=== PATIENT | male | born 1995 | race Caucasian/White ===

== ENCOUNTER 2018-02-22 21:03 | Inpatient (IN) ==
--- NOTE | 2018-02-22 22:18 | Emergency Department Note ---
Disposition Clinical Impression: Acute psychosis Disposition: Still a Patient Time of Disposition: 22:18 General Adult HPI - General Chief complaint: ED Psychiatric Symptoms Stated complaint: 1A consult/ seeing bugs Time Seen by Provider: 02/22/18 21:22 Source: patient, EMS Mode of arrival: EMS Limitations: altered mental status Nursing Notes Reviewed: Yes Vital Signs Reviewed: Yes - History of Present Illness HPI Narrative: Patient presents to the ED with abnormal behavior. Patient was found swatting at bugs in the air that were not there. He told EMS he was trying to get to the mother brought of his car. Patient states to me that someone is missed with the "tiffs" in the security system of his computer motherboard's. Patient denies any drug use to me. Denies any chest pain shortness of breath numbness tingling nausea vomiting or diarrhea. Pain Scale: 0 - Related Data Previous Rx's Medication Instructions Recorded methylPREDNISolone [Medrol] 4 mg PO TAPER #21 tablet 04/20/17 Allergies Allergy/AdvReac Type Severity Reaction Status Date / Time Amoxicillin Allergy Abdominal Verified 02/22/18 21:16 Pain acetaminophen [From Tylenol] AdvReac See Verified 02/22/18 21:16 Comments Cyclobenzaprine AdvReac Gastrointestinal Verified 02/22/18 21:16 [From Flexeril] Upset ibuprofen AdvReac Unconscious Verified 02/22/18 21:16 naproxen AdvReac See Verified 02/22/18 21:16 Comments Penicillins AdvReac Gastrointestinal Verified 02/22/18 21:16 Upset All systems ED: reviewed and negative except as stated. Constitutional: Denies: fever Cardiovascular: Denies: chest pain Gastrointestinal: Denies: abdominal pain, vomiting, diarrhea Past Medical History - Past Medical History Attestation: Yes The following information was validated with the patient. Source: patient, nursing notes reviewed Medical history: Reports: no medical history Surgical history: Reports: other Psychiatric history: Reports: ADHD - Social History Smoking Status: Current every day smoker Smokeless Tobacco Status: No Alcohol use: Reports: none Drug use: Reports: methamphetamine Physical Exam Patient awake and alert sitting on the side of the bed. Patient converted in dirt. - General General appearance: alert, in no apparent distress - Head Head exam: atraumatic, normocephalic - Eye Eye exam: Present: normal appearance - Neck Neck exam: Present: normal inspection - Respiratory Respiratory exam: Present: normal lung sounds bilaterally - Cardiovascular Cardiovascular exam: Present: regular rate, normal rhythm, normal heart sounds - Abdominal Exam Abdominal exam: Present: soft, Non-Tender - Neurological Exam Neurological exam: Present: alert, oriented X3 - Psychiatric Psychiatric exam: Present: agitated - Skin Skin exam: Present: warm Course - Reevaluation(s) Reevaluation #1: Patient disheveled. Actively delusional. Medical clearance and evaluation by 1A. 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 Time: 22:18 Vital Signs Temperature 98.1 F 02/22/18 21:09 Pulse Rate 110 02/22/18 21:09 Respiratory Rate 20 02/22/18 21:09 Blood Pressure 133/87 02/22/18 21:09 O2 Sat by Pulse Oximetry 97 02/22/18 21:09 Temperature 98.1 F 02/22/18 21:09 Pulse Rate 110 02/22/18 21:09 Respiratory Rate 20 02/22/18 21:09 Blood Pressure 133/87 02/22/18 21:09 O2 Sat by Pulse Oximetry 97 02/22/18 21:09 Oxygen Delivery Oxygen Delivery Room Air Critical Care Time Critical Care Time: No
[2018-02-22 22:34] LABS: Acetaminophen < 10 mcg/mL (10-20); BUN/Creatinine Ratio 21 (6-26); Blood Urea Nitrogen 23 mg/dL (6-20); Calcium 9.8 mg/dL (8.6-10.3); Carbon Dioxide 27 mEq/L (23-29); Chloride 105 mEq/L (98-107); Ethanol < 10 mg/dL (Less than 10); Glucose 117 mg/dL (70-105); Osmolality,Calculated 293 (280-300); Potassium 3.6 mEq/L (3.5-5.1); Salicylate < 2.5 mg/dL (15.0-30.0); Sodium 139 mEq/L (136-145); eGFR For Non-African Americans > 60 (> 60)
[2018-02-22 22:51] LABS: Basophils % 0.3 %; Eosinophils % 0.3 %; Hematocrit 45.4 % (37.5-50.1); Hemoglobin 15.2 g/dL (12.9-16.9); Immature Granulocytes % 0.2 % (0-4); Lymphocytes % 22.5 %; Mean Corpuscular HGB Conc 33.5 g/dL (31.6-35.5); Mean Corpuscular Hemoglobin 29.5 pg (28.0-33.3); Mean Platelet Volume 9.5 fL (9.4-12.4); Monocytes # 0.8 K/mcL (0.0-1.3); Monocytes % 9.2 %; Platelet Count 253 K/mcL (140-400); Red Blood Count 5.16 M/mcL (4.19-5.50); Red Cell Distribution Width 13.1 % (11.5-14.5); Segmented Neutrophils % 67.5 %
[2018-02-22 23:09] LABS: Bilirubin,Urine Negative (Negative); Blood,Urine Negative (Negative); Clarity,Urine Clear (Clear); Color,Urine Yellow (Yellow); Glucose,Urine (UA) Normal (Normal); Ketones,Urine Negative (Negative); Leukocyte Esterase,Urine Negative (Negative); Nitrite,Urine Negative (Negative); Protein,Urine Negative (Neg-Trace); Specific Gravity,Urine 1.017 (1.010-1.025); Urobilinogen,Urine Normal (Normal)
[2018-02-22 23:33] LABS: Amphetamine Screen,Urine Positive ng/mL (Cutoff=1000); Barbiturate Screen,Urine Negative ng/mL (Cutoff=200); Benzodiazepines Screen,Urine Negative ng/mL (Cutoff=200); Cannabinoid Screen,Urine Negative ng/mL (Cutoff = 50); Cocaine Screen,Urine Negative ng/mL (Cutoff= 300); Opiate Screen,Urine Negative ng/mL (Cutoff=300); Phencyclidine Screen,Urine Negative ng/mL (Cutoff=25)
--- NOTE | 2018-02-23 03:25 | Emergency Department Note ---
Disposition Clinical Impression: Acute psychosis, Amphetamine abuse Disposition: Still a Patient Condition: Good Referrals: NONE,PCP [Primary Care Provider] - Forms: ED Satisfaction Letter General Adult HPI - General Chief complaint: ED Psychiatric Symptoms Stated complaint: 1A consult/ seeing bugs Time Seen by Provider: 02/22/18 21:22 Source: patient, EMS Mode of arrival: EMS Limitations: altered mental status - History of Present Illness Pain Scale: 0 - Related Data Previous Rx's Medication Instructions Recorded methylPREDNISolone [Medrol] 4 mg PO TAPER #21 tablet 04/20/17 Allergies Allergy/AdvReac Type Severity Reaction Status Date / Time Amoxicillin Allergy Abdominal Verified 02/22/18 21:16 Pain acetaminophen [From Tylenol] AdvReac See Verified 02/22/18 21:16 Comments Cyclobenzaprine AdvReac Gastrointestinal Verified 02/22/18 21:16 [From Flexeril] Upset ibuprofen AdvReac Unconscious Verified 02/22/18 21:16 naproxen AdvReac See Verified 02/22/18 21:16 Comments Penicillins AdvReac Gastrointestinal Verified 02/22/18 21:16 Upset Constitutional: Denies: fever Cardiovascular: Denies: chest pain Gastrointestinal: Denies: abdominal pain, vomiting, diarrhea Past Medical History - Past Medical History Medical history: Reports: no medical history Surgical history: Reports: other Psychiatric history: Reports: ADHD - Social History Smoking Status: Current every day smoker Smokeless Tobacco Status: No Alcohol use: Reports: none Drug use: Reports: methamphetamine Physical Exam - General Limitations: altered mental status General appearance: alert, in no apparent distress Course Course Narrative: This patient was signed out to me at shift change from Dr. Warren. Please refer to her note for complete details of the history and physical examination. Patient presented with new onset of psychosis with hallucinations and delusional thoughts. Patient is awaiting labs for medical clearance and psychiatry consultation. Labs returned and unremarkable. Tox screen positive for amphetamines only. [place] [facility] psychiatry service was consulted and evaluated the patient in the emergency department and have recommended inpatient treatment. There are no beds available here and they are currently working on finding an inpatient psychiatric bed placement for this patient. At shift change patient is still awaiting psychiatric bed placement. Patient signed out to the [facility] physician, Dr. Pickard. Vital Signs Temperature 98.1 F 02/22/18 21:09 Pulse Rate 110 02/22/18 21:09 Respiratory Rate 20 02/22/18 21:09 Blood Pressure 133/87 02/22/18 21:09 O2 Sat by Pulse Oximetry 97 02/22/18 21:09 Temperature 97.3 F L 02/23/18 06:17 Pulse Rate 73 02/23/18 06:17 Respiratory Rate 16 02/23/18 06:17 Blood Pressure 120/75 02/23/18 06:17 O2 Sat by Pulse Oximetry 98 02/23/18 06:17 Oxygen Delivery Oxygen Delivery Room Air Medical Decision Making - Lab Data Result diagrams: 02/22/18 22:35 02/22/18 22:00 Lab Results 02/22/18 02/22/18 02/22/18 Range/Units 22:00 22:35 23:00 WBC 8.8 (4.3-11.1) K/mcL RBC 5.16 (4.19-5.50) M/mcL Hgb 15.2 (12.9-16.9) g/dL Hct 45.4 (37.5-50.1) % MCV 88.0 (83.0-100.0) fL MCH 29.5 (28.0-33.3) pg MCHC 33.5 (31.6-35.5) g/dL RDW 13.1 (11.5-14.5) % Plt Count 253 (140-400) K/mcL MPV 9.5 (9.4-12.4) fL Immature Gran % 0.2 (0-4) % Seg Neutrophils % 67.5 % Lymphocytes % 22.5 % Monocytes % 9.2 % Eosinophils % 0.3 % Basophils % 0.3 % Neutrophils # 6.0 (1.6-8.9) K/mcL Lymphocytes # 2.0 (0.6-4.6) K/mcL Monocytes # 0.8 (0.0-1.3) K/mcL Eosinophils # 0.0 (0.0-0.6) K/mcL Basophils # 0.0 (0.0-0.2) K/mcL Sodium 139 (136-145) mEq/L Potassium 3.6 (3.5-5.1) mEq/L Chloride 105 (98-107) mEq/L Carbon Dioxide 27 (23-29) mEq/L BUN 23 H (6-20) mg/dL Creatinine 1.08 (0.70-1.30) mg/dL Est GFR ( Amer) > 60 (> 60) Est GFR (Non-Af Amer) > 60 (> 60) BUN/Creatinine Ratio 21 (6-26) Glucose 117 H (70-105) mg/dL Calculated Osmolality 293 (280-300) Calcium 9.8 (8.6-10.3) mg/dL Urine Color Yellow (Yellow) Urine Clarity Clear (Clear) Urine pH 6.0 (5.0-8.0) pH Units Ur Specific [place] 1.017 (1.010-1.025) Urine Protein Negative (Neg-Trace) mg/dL Urine Glucose (UA) Normal (Normal) mg/dL Urine Ketones Negative (Negative) mg/dL Urine Blood Negative (Negative) Urine Nitrite Negative (Negative) Urine Bilirubin Negative (Negative) Urine Urobilinogen Normal (Normal) mg/dL Ur Leukocyte Esterase Negative (Negative) Salicylates < 2.5 L (15.0-30.0) mg/dL Urine Opiates Screen (Kgcvbt=818) ng/mL Acetaminophen < 10 L (10-20) mcg/mL Ur Barbiturates Screen (Zytezb=495) ng/mL Ur Phencyclidine Scrn (Cutoff=25) ng/mL Ur Amphetamines Screen (Pnjgee=7269) ng/mL U Benzodiazepines Scrn (Lcvkmz=458) ng/mL Urine Cocaine Screen (Cutoff= 300) ng/mL U Marijuana (THC) Screen (Cutoff = 50) ng/mL Ur Drug Screen Interp Ethyl Alcohol < 10 (Less than 10) mg/dL 02/22/18 Range/Units 23:00 WBC (4.3-11.1) K/mcL RBC (4.19-5.50) M/mcL Hgb (12.9-16.9) g/dL Hct (37.5-50.1) % MCV (83.0-100.0) fL MCH (28.0-33.3) pg MCHC (31.6-35.5) g/dL RDW (11.5-14.5) % Plt Count (140-400) K/mcL MPV (9.4-12.4) fL Immature Gran % (0-4) % Seg Neutrophils % % Lymphocytes % % Monocytes % % Eosinophils % % Basophils % % Neutrophils # (1.6-8.9) K/mcL Lymphocytes # (0.6-4.6) K/mcL Monocytes # (0.0-1.3) K/mcL Eosinophils # (0.0-0.6) K/mcL Basophils # (0.0-0.2) K/mcL Sodium (136-145) mEq/L Potassium (3.5-5.1) mEq/L Chloride (98-107) mEq/L Carbon Dioxide (23-29) mEq/L BUN (6-20) mg/dL Creatinine (0.70-1.30) mg/dL Est GFR ( Amer) (> 60) Est GFR (Non-Af Amer) (> 60) BUN/Creatinine Ratio (6-26) Glucose (70-105) mg/dL Calculated Osmolality (280-300) Calcium (8.6-10.3) mg/dL Urine Color (Yellow) Urine Clarity (Clear) Urine pH (5.0-8.0) pH Units Ur Specific [place] (1.010-1.025) Urine Protein (Neg-Trace) mg/dL Urine Glucose (UA) (Normal) mg/dL Urine Ketones (Negative) mg/dL Urine Blood (Negative) Urine Nitrite (Negative) Urine Bilirubin (Negative) Urine Urobilinogen (Normal) mg/dL Ur Leukocyte Esterase (Negative) Salicylates (15.0-30.0) mg/dL Urine Opiates Screen Negative (Kkzjyl=736) ng/mL Acetaminophen (10-20) mcg/mL Ur Barbiturates Screen Negative (Zxbcuv=196) ng/mL Ur Phencyclidine Scrn Negative (Cutoff=25) ng/mL Ur Amphetamines Screen Positive H (Mhfman=5618) ng/mL U Benzodiazepines Scrn Negative (Egryti=534) ng/mL Urine Cocaine Screen Negative (Cutoff= 300) ng/mL U Marijuana (THC) Screen Negative (Cutoff = 50) ng/mL Ur Drug Screen Interp See Below Ethyl Alcohol (Less than 10) mg/dL
[2018-02-24] MEDS ORDERED: *HR* LORazepam 1 MG TABLET PO PRN (00:13)
[2018-02-24] MEDS ORDERED: Mag Hydrox/Al Hydrox/Simeth 30 ML UDC PO PRN (00:13)
[2018-02-24] MEDS ORDERED: hydrOXYzine pamoate 25 MG CAPSULE PO PRN (00:13)
[2018-02-24] MEDS ORDERED: Ibuprofen 400 MG TABLET PO PRN (00:13)
[2018-02-24] MEDS ORDERED: MOM Conc 10 ML UD.LIQ PO PRN (00:13)
[2018-02-24] MEDS ORDERED: Acetaminophen 325 MG TABLET PO PRN (00:13)
[2018-02-24] MEDS ORDERED: *HR* LORazepam 2 MG/ML VIAL IM PRN (00:13)
[2018-02-24] MEDS ORDERED: traZODone 50 MG TABLET PO PRN (00:13)
[2018-02-24] MEDS ORDERED: Haloperidol Lactate 5 MG/ML VIAL IM PRN (00:13)
--- NOTE | 2018-02-24 00:15 | Emergency Department Note ---
Disposition Clinical Impression: Acute psychosis, Amphetamine abuse Disposition: Admitted As Inpatient Condition: Good Time of Disposition: 00:15 General Adult HPI - General Chief complaint: ED Psychiatric Symptoms Stated complaint: 1A consult/ seeing bugs Time Seen by Provider: 02/22/18 21:22 Source: patient, EMS Mode of arrival: EMS Limitations: altered mental status - History of Present Illness Pain Scale: 0 - Related Data Previous Rx's Medication Instructions Recorded methylPREDNISolone [Medrol] 4 mg PO TAPER #21 tablet 04/20/17 Allergies Allergy/AdvReac Type Severity Reaction Status Date / Time Amoxicillin Allergy Abdominal Verified 02/22/18 21:16 Pain acetaminophen [From Tylenol] AdvReac See Verified 02/22/18 21:16 Comments Cyclobenzaprine AdvReac Gastrointestinal Verified 02/22/18 21:16 [From Flexeril] Upset ibuprofen AdvReac Unconscious Verified 02/22/18 21:16 naproxen AdvReac See Verified 02/22/18 21:16 Comments Penicillins AdvReac Gastrointestinal Verified 02/22/18 21:16 Upset Constitutional: Denies: fever Cardiovascular: Denies: chest pain Gastrointestinal: Denies: abdominal pain, vomiting, diarrhea Past Medical History - Past Medical History Medical history: Reports: no medical history Surgical history: Reports: other Psychiatric history: Reports: ADHD - Social History Smoking Status: Current every day smoker Smokeless Tobacco Status: No Alcohol use: Reports: none Drug use: Reports: methamphetamine Physical Exam - General Limitations: altered mental status General appearance: alert, in no apparent distress Course Course Narrative: Patient was signed out to me again at shift change. Patient has been here more than 24 hours awaiting psychiatric bed placement. Patient was apparently reevaluated by the [address] psychiatry service and the psychiatrist requested a CT of the head was obtained and was negative. Patient is being admitted here to the [address] psychiatric unit. Vital Signs Temperature 98.1 F 02/22/18 21:09 Pulse Rate 110 02/22/18 21:09 Respiratory Rate 20 02/22/18 21:09 Blood Pressure 133/87 02/22/18 21:09 O2 Sat by Pulse Oximetry 97 02/22/18 21:09 Temperature 97.3 F L 02/23/18 06:17 Pulse Rate 92 02/23/18 23:20 Respiratory Rate 18 02/23/18 23:20 Blood Pressure 112/72 02/23/18 23:20 O2 Sat by Pulse Oximetry 99 02/23/18 23:20 Oxygen Delivery Oxygen Delivery Room Air Medical Decision Making - Lab Data Result diagrams: 02/22/18 22:35 02/22/18 22:00 Lab Results 02/22/18 02/22/18 02/22/18 Range/Units 22:00 22:35 23:00 WBC 8.8 (4.3-11.1) K/mcL RBC 5.16 (4.19-5.50) M/mcL Hgb 15.2 (12.9-16.9) g/dL Hct 45.4 (37.5-50.1) % MCV 88.0 (83.0-100.0) fL MCH 29.5 (28.0-33.3) pg MCHC 33.5 (31.6-35.5) g/dL RDW 13.1 (11.5-14.5) % Plt Count 253 (140-400) K/mcL MPV 9.5 (9.4-12.4) fL Immature Gran % 0.2 (0-4) % Seg Neutrophils % 67.5 % Lymphocytes % 22.5 % Monocytes % 9.2 % Eosinophils % 0.3 % Basophils % 0.3 % Neutrophils # 6.0 (1.6-8.9) K/mcL Lymphocytes # 2.0 (0.6-4.6) K/mcL Monocytes # 0.8 (0.0-1.3) K/mcL Eosinophils # 0.0 (0.0-0.6) K/mcL Basophils # 0.0 (0.0-0.2) K/mcL Sodium 139 (136-145) mEq/L Potassium 3.6 (3.5-5.1) mEq/L Chloride 105 (98-107) mEq/L Carbon Dioxide 27 (23-29) mEq/L BUN 23 H (6-20) mg/dL Creatinine 1.08 (0.70-1.30) mg/dL Est GFR ( Amer) > 60 (> 60) Est GFR (Non-Af Amer) > 60 (> 60) BUN/Creatinine Ratio 21 (6-26) Glucose 117 H (70-105) mg/dL Calculated Osmolality 293 (280-300) Calcium 9.8 (8.6-10.3) mg/dL Urine Color Yellow (Yellow) Urine Clarity Clear (Clear) Urine pH 6.0 (5.0-8.0) pH Units Ur Specific [place] 1.017 (1.010-1.025) Urine Protein Negative (Neg-Trace) mg/dL Urine Glucose (UA) Normal (Normal) mg/dL Urine Ketones Negative (Negative) mg/dL Urine Blood Negative (Negative) Urine Nitrite Negative (Negative) Urine Bilirubin Negative (Negative) Urine Urobilinogen Normal (Normal) mg/dL Ur Leukocyte Esterase Negative (Negative) Salicylates < 2.5 L (15.0-30.0) mg/dL Urine Opiates Screen (Uwiozc=267) ng/mL Acetaminophen < 10 L (10-20) mcg/mL Ur Barbiturates Screen (Vlubkq=074) ng/mL Ur Phencyclidine Scrn (Cutoff=25) ng/mL Ur Amphetamines Screen (Bfgonh=7470) ng/mL U Benzodiazepines Scrn (Jegixn=557) ng/mL Urine Cocaine Screen (Cutoff= 300) ng/mL U Marijuana (THC) Screen (Cutoff = 50) ng/mL Ur Drug Screen Interp Ethyl Alcohol < 10 (Less than 10) mg/dL 02/22/18 Range/Units 23:00 WBC (4.3-11.1) K/mcL RBC (4.19-5.50) M/mcL Hgb (12.9-16.9) g/dL Hct (37.5-50.1) % MCV (83.0-100.0) fL MCH (28.0-33.3) pg MCHC (31.6-35.5) g/dL RDW (11.5-14.5) % Plt Count (140-400) K/mcL MPV (9.4-12.4) fL Immature Gran % (0-4) % Seg Neutrophils % % Lymphocytes % % Monocytes % % Eosinophils % % Basophils % % Neutrophils # (1.6-8.9) K/mcL Lymphocytes # (0.6-4.6) K/mcL Monocytes # (0.0-1.3) K/mcL Eosinophils # (0.0-0.6) K/mcL Basophils # (0.0-0.2) K/mcL Sodium (136-145) mEq/L Potassium (3.5-5.1) mEq/L Chloride (98-107) mEq/L Carbon Dioxide (23-29) mEq/L BUN (6-20) mg/dL Creatinine (0.70-1.30) mg/dL Est GFR ( Amer) (> 60) Est GFR (Non-Af Amer) (> 60) BUN/Creatinine Ratio (6-26) Glucose (70-105) mg/dL Calculated Osmolality (280-300) Calcium (8.6-10.3) mg/dL Urine Color (Yellow) Urine Clarity (Clear) Urine pH (5.0-8.0) pH Units Ur Specific [place] (1.010-1.025) Urine Protein (Neg-Trace) mg/dL Urine Glucose (UA) (Normal) mg/dL Urine Ketones (Negative) mg/dL Urine Blood (Negative) Urine Nitrite (Negative) Urine Bilirubin (Negative) Urine Urobilinogen (Normal) mg/dL Ur Leukocyte Esterase (Negative) Salicylates (15.0-30.0) mg/dL Urine Opiates Screen Negative (Kybxln=366) ng/mL Acetaminophen (10-20) mcg/mL Ur Barbiturates Screen Negative (Fehkmq=717) ng/mL Ur Phencyclidine Scrn Negative (Cutoff=25) ng/mL Ur Amphetamines Screen Positive H (Stgqaj=1695) ng/mL U Benzodiazepines Scrn Negative (Pnlnzh=421) ng/mL Urine Cocaine Screen Negative (Cutoff= 300) ng/mL U Marijuana (THC) Screen Negative (Cutoff = 50) ng/mL Ur Drug Screen Interp See Below Ethyl Alcohol (Less than 10) mg/dL
--- NOTE | 2018-02-24 14:30 | Psychiatry History & Physical ---
Date of Encounter: 02/24/18 Time of Encounter: 14:00 History of Present Illness Patient Stated Chief Complaint: METHAMPHETamine, not now Medicare Admission Attestation: For traditional Medicare patients the provided hospital inpatient services are reasonable and necessary and in the case of services not specified as inpatient -only under 42 CFR 419.22 (n), that they are appropriately provided as inpatient services in accordance 42 CFR 412.3. For Critical Access Hospital the patient may reasonably be expected to be discharged or transferred to a hospital within 96 hours after admission to the Critical Access Hospital. Admitted From: Emergency Dept Plans for Post Hospital Care: Home History of Present Illness: Mr. Miguel is a 23 year old male The patient is a 23-year-old engaged white male. Chief complaint I got a couple of issues, but I can control it History of present illness. 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 He went to [facility] and was treated with surgery to correct these. 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 He attended special ed and eventually graduated age 16. He sought jobs such as an [place] [facility] [employer] [facility] work in automotive work and electrical work. The patient had boys been in special ed. He reports that he was bullied or made fun of him throughout school but that he stopped doing that and that he only has problems in self-defense he denies road rage she denies explosive outbursts are yelling at others. The patient is a fair historian and tends to give limited explanation area The patient reports that age 16 he graduated he worked with his dad. 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 Age 19 he was given a choice of staying with family of origin or going to live with his grandmother. His paternal grandmother Aminata had taken them in. He lived with her until 1-1/2 years ago. His fiancee also lived with him and they have a 4-year-old son together. The patient has not been steadily employed and has slight dates says that he lived from [place] and was reported seeing bugs in [place] even though his drug screen is safe for methamphetamine he says that he no longer plans to use it. Past medical history. The patient has had surgeries multiple bone grafts from the hip to the mouth. A repair of the lip and maxilla. I also has a luther in a small toe. The medicines he takes Motrin and aspirin. He has no primary care physician. Family history is negative for psychiatric illness there may be some suicides in the family but this is not known there is no history of drug or alcohol. The patient review of systems reveals the patient smokes cigarettes Past Med Surg Social Fam HX - Past Medical History Source: patient Medical history: no medical history - Past Psychiatric History Psychiatric history: Reports: no psych history Family psychiatric history: No Family History of Suicide: Completed - Past Surgical History Surgical History: orthopedic, other, other - Social History Smoking Status: Current every day smoker Smokeless Tobacco Status: No Alcohol use: none Drug use: methamphetamine Medications & Allergies No Known Home Drugs 02/24/18 [History] 3 Allergy/AdvReac Type Severity Reaction Status Date / Time Amoxicillin Allergy Abdominal Verified 02/22/18 21:16 Pain acetaminophen [From Tylenol] AdvReac See Verified 02/22/18 21:16 Comments Cyclobenzaprine AdvReac Gastrointestinal Verified 02/22/18 21:16 [From Flexeril] Upset ibuprofen AdvReac Unconscious Verified 02/22/18 21:16 naproxen AdvReac See Verified 02/22/18 21:16 Comments Penicillins AdvReac Gastrointestinal Verified 02/22/18 21:16 Upset Review of Systems Constitutional: Denies: fever, chills, weakness, weight change Eyes: Denies: eye pain, vision change Ears, Nose, Throat: Denies: ear pain, throat pain, dental pain, hearing loss, congestion Cardiovascular: Denies: chest pain, palpitations, dyspnea on exertion Respiratory: Denies: cough, dyspnea, wheezes Gastrointestinal: Denies: abdominal pain, nausea, vomiting, diarrhea, constipation Genitourinary male: Denies: urgency, dysuria, frequency, genital lesions Musculoskeletal: Denies: joint swelling, joint pain Integumentary: Denies: rash, lesions, pruritus Neurological: Denies: headache, weakness, numbness, memory loss Psychiatric: Reports: visual hallucinations Endocrine: Denies: fatigue, heat or cold intolerance Hematologic/Lymphatic: Denies: easy bruising, lymphadenopathy Allergic/Immunologic: Denies: urticaria, itchy eyes Exam - HEENT Head exam IM: Present: atraumatic Eye exam IM: Present: EOMI, normal appearance, PERRL ENT exam IM: Present: normal exam - Neurological Neurological exam: Present: CN II-XII intact - Respiratory Respiratory exam IM: Present: CTAB - GI/Abdominal GI/Abdominal exam IM: Present: normal bowel sounds, soft. Absent: tenderness - Extremities Extremities exam IM: Present: full ROM - Skin Skin exam IM: Present: dry, warm - Constitutional Vitals: Temp Pulse Resp BP Pulse Ox 98 F 92 16 114/76 99 02/24/18 00:47 02/23/18 23:20 02/24/18 00:47 02/24/18 00:47 02/23/18 23:20 General appearance: age & developmentally appropriate, well-groomed, well- nourished - Musculoskeletal Gait: normal Station: relaxed Strength & Tone: normal for patient - Psychiatric Patient Orientation: Yes Person, Yes Time, Yes Place Level of alertness: Alert Behavior: calm, uncooperative, guarded Psychomotor activity: Normal Eye Contact: Maintains Eye Contact Mood Description: Depressed, Other Affect description: congruent with mood, constricted Speech Volume: Normal Speech pattern: normal rate, normal rhythm, normal tone, fluent, spontaneous Language & Vocabulary: grade school level Thought Process: Linear, Goal Oriented Thought Content: No Suicidal ideation, No Homicidal ideation, No Overt delusions Perceptual Disturbances: Yes Auditory hallucinations, No Visual hallucinations Attention Span Ability: Capable of Focused Attention Memory Description: Grossly Intact Patient Reliability: Questionable Historian Intelligence Estimate: Below Average Judgment: Limited Insight: Minimal Results - Labs Labs: Laboratory Last Values WBC 8.8 K/mcL (4.3-11.1) 02/22/18 22:35 RBC 5.16 M/mcL (4.19-5.50) 02/22/18 22:35 Hgb 15.2 g/dL (12.9-16.9) 02/22/18 22:35 Hct 45.4 % (37.5-50.1) 02/22/18 22:35 MCV 88.0 fL (83.0-100.0) 02/22/18 22:35 MCH 29.5 pg (28.0-33.3) 02/22/18 22:35 MCHC 33.5 g/dL (31.6-35.5) 02/22/18 22:35 RDW 13.1 % (11.5-14.5) 02/22/18 22:35 Plt Count 253 K/mcL (140-400) 02/22/18 22:35 MPV 9.5 fL (9.4-12.4) 02/22/18 22:35 Immature Gran % 0.2 % (0-4) 02/22/18 22:35 Seg Neutrophils % 67.5 % 02/22/18 22:35 Lymphocytes % 22.5 % 02/22/18 22:35 Monocytes % 9.2 % 02/22/18 22:35 Eosinophils % 0.3 % 02/22/18 22:35 Basophils % 0.3 % 02/22/18 22:35 Neutrophils # 6.0 K/mcL (1.6-8.9) 02/22/18 22:35 Lymphocytes # 2.0 K/mcL (0.6-4.6) 02/22/18: Monocytes # 0.8 K/mcL (0.0-1.3) 02/22/18 22:35 Eosinophils # 0.0 K/mcL (0.0-0.6) 02/22/18 22:35 Basophils # 0.0 K/mcL (0.0-0.2) 02/22/18 22:35 Sodium 139 mEq/L (136-145) 02/22/18 22:00 Potassium 3.6 mEq/L (3.5-5.1) 02/22/18 22:00 Chloride 105 mEq/L (98-107) 02/22/18 22:00 Carbon Dioxide 27 mEq/L (23-29) 02/22/18 22:00 BUN 23 mg/dL (6-20) H 02/22/18 22:00 Creatinine 1.08 mg/dL (0.70-1.30) 02/22/18 22:00 Est GFR ( Amer) > 60 (> 60) 02/22/18 22:00 Est GFR (Non-Af Amer) > 60 (> 60) 02/22/18 22:00 BUN/Creatinine Ratio 21 (6-26) 02/22/18 22:00 Glucose 117 mg/dL (70-105) H 02/22/18 22:00 Calculated Osmolality 293 (280-300) 02/22/18 22:00 Calcium 9.8 mg/dL (8.6-10.3) 02/22/18 22:00 Urine Color Yellow (Yellow) 02/22/18 23:00 Urine Clarity Clear (Clear) 02/22/18 23:00 Urine pH 6.0 pH Units (5.0-8.0) 02/22/18 23:00 Ur Specific [place] 1.017 (1.010-1.025) 02/22/18 23:00 Urine Protein Negative mg/dL (Neg-Trace) 02/22/18 23:00 Urine Glucose (UA) Normal mg/dL (Normal) 02/22/18 23:00 Urine Ketones Negative mg/dL (Negative) 02/22/18 23:00 Urine Blood Negative (Negative) 02/22/18 23:00 Urine Nitrite Negative (Negative) 02/22/18 23:00 Urine Bilirubin Negative (Negative) 02/22/18 23:00 Urine Urobilinogen Normal mg/dL (Normal) 02/22/18 23:00 Ur Leukocyte Esterase Negative (Negative) 02/22/18 23:00 Salicylates < 2.5 mg/dL (15.0-30.0) L 02/22/18 22:00 Urine Opiates Screen Negative ng/mL (Mdbvne=934) 02/22/18 23:00 Acetaminophen < 10 mcg/mL (10-20) L 02/22/18 22:00 Ur Barbiturates Screen Negative ng/mL (Lpoqpm=164) 02/22/18 23:00 Ur Phencyclidine Scrn Negative ng/mL (Cutoff=25) 02/22/18 23:00 Ur Amphetamines Screen Positive ng/mL (Plpqsf=6718) H 02/22/18 23:00 U Benzodiazepines Scrn Negative ng/mL (Jfwjkw=248) 02/22/18 23:00 Urine Cocaine Screen Negative ng/mL (Cutoff= 300) 02/22/18 23:00 U Marijuana (THC) Screen Negative ng/mL (Cutoff = 50) 02/22/18 23:00 Ur Drug Screen Interp See Below 02/22/18 23:00 Ethyl Alcohol < 10 mg/dL (Less than 10) 02/22/18 22:00 Assessment and Plan (1) Intermittent explosive disorder in adult Current visit: Yes Status: Acute Plan: Admit inpatient for safety and stabilization, Close observation, Encourage participation in unit milieu, Group Therapy, Family/Supportive other meeting Risks, benefits, side effects, alternatives discussed w/pt: Yes Patient agreeable to treatment: Yes Plans for Post Hospital Care: Home Estimated Length of Stay (Days): 3 (2) 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
--- NOTE | 2018-02-25 13:32 | Psychiatry Progress Note ---
Date of Encounter: 02/25/18 Time of Encounter: 13:30 Subjective Interval history: 23 yo W Male. CC: i talked to my dad HPI: Patient has been able to see that methamphetamine is not helpful. She is not taking any medication. He still has some belief that others are a problem but denies being persecuted by others. He is talking aobut his plans. He has a primary care physician. He has not heard from his GF. He has been hoping to get things straighteened up at home and get some jobs. He plans to maintain sobriety by staying away from drug users and stay around possitive people. He agrees to sobreity, and follow-up with Dr. Oconnor his PCP. 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 Oconnor for primary care and medication management. Please bring photo ID, proof of insurance and last year's tax statement if available. Also bring bottles of any medication you take on a regular basis to include over the counter, herbs, vitamins and prescription medication. Please call 24 hours in advance for cancellations. ) Psychiatry Exam - Constitutional Vitals: Temp Pulse Resp BP Pulse Ox 98.3 F 76 16 106/72 99 02/25/18 09:00 02/25/18 09:00 02/25/18 09:00 02/25/18 09:00 02/23/18 23:20 General appearance: age & developmentally appropriate, well-groomed, well- nourished - Musculoskeletal Gait: normal Station: relaxed Strength & Tone: normal for patient - Psychiatric Patient Orientation: Yes Person, Yes Time, Yes Place Level of alertness: Alert Behavior: calm, cooperative Psychomotor activity: Normal Eye Contact: Maintains Eye Contact Mood Description: Euthymic/stable Affect description: congruent with mood, full range Speech Volume: Normal Speech pattern: normal rate, normal rhythm, normal tone, spontaneous, other Language & Vocabulary: grade school level Thought Process: Linear, Goal Oriented Thought Content: No Suicidal ideation, No Homicidal ideation, No Overt delusions Perceptual Disturbances: No Auditory hallucinations, No Visual hallucinations Attention Span Ability: Capable of Focused Attention Memory Description: Grossly Intact Patient Reliability: Reliable Historian Fund of knowledge: Yes average, Yes aware of current events Intelligence Estimate: Below Average Judgment: Fair Insight: Partial
[2018-02-25] MEDS ORDERED: Nicotine 2 MG GUM BC PRN (21:27)
[2018-02-26 10:46] VITALS: BP 115/73
--- NOTE | 2018-02-26 11:59 | Discharge Summary ---
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 Priority: Secondary Status: Acute Medications - Discharge Medications No Known Home Drugs 02/24/18 [History] 3 Allergy/AdvReac Type Severity Reaction Status Date / Time Amoxicillin Allergy Abdominal Verified 02/22/18 21:16 Pain acetaminophen [From Tylenol] AdvReac See Verified 02/22/18 21:16 Comments Cyclobenzaprine AdvReac Gastrointestinal Verified 02/22/18 21:16 [From Flexeril] Upset ibuprofen AdvReac Unconscious Verified 02/22/18 21:16 naproxen AdvReac See Verified 02/22/18 21:16 Comments Penicillins AdvReac Gastrointestinal Verified 02/22/18 21:16 Upset Provider Date of admission: 02/23/18 23:55 Primary care physician: PCP NONE Discharging clinician: Flip Galarza Psychiatry Exam - Constitutional Vitals: Temp Pulse Resp BP Pulse Ox 97.1 F L 70 18 115/73 99 02/26/18 09:00 02/26/18 09:00 02/26/18 09:00 02/26/18 09:00 02/23/18 23:20 General appearance: age & developmentally appropriate, well-groomed, well- nourished - Musculoskeletal Gait: normal Station: relaxed Strength & Tone: normal for patient - Psychiatric Patient Orientation: Yes Person, Yes Time, Yes Place Level of alertness: Alert Behavior: calm, cooperative Psychomotor activity: Normal Eye Contact: Maintains Eye Contact Mood Description: Euthymic/stable Affect description: congruent with mood, full range Speech Volume: Normal Speech pattern: normal rate, normal rhythm, normal tone, spontaneous, other Language & Vocabulary: consistent with education Thought Process: Linear, Goal Oriented Thought Content: No Suicidal ideation, No Homicidal ideation, No Overt delusions Perceptual Disturbances: No Auditory hallucinations, No Visual hallucinations Attention Span Ability: Capable of Focused Attention Memory Description: Grossly Intact Patient Reliability: Questionable Historian Fund of knowledge: Yes below average Intelligence Estimate: Below Average Judgment: Fair Insight: Partial Hospital Course Hospital course: Mr. Miguel is a 23 year old male Chief complaint I am not going to use methamphetamine. History of present illness. The patient presented initially in the ER with psychotic symptoms these included paranoid ideation and believes that others stolen from him. He also was reported seeing bugs on his hands and arms that were not present. The patient was seen the next day and while he still reported paranoid ideation he denied seeing bugs. The patient was not a very good historian. It is difficult to understand his speech is he has had a repaired cleft palate. The patient improved gradually on the unit. External sources seemed to indicate the possibility of intermittent explosive disorder with episodes of anger irritability. The patient has a girlfriend and 4-year-old child and she had moved and relocated because of his anger attacks area the patient tended to minimize this. The patient admitted to using methamphetamine and the drug screen was positive for methamphetamine but he stated that he would not use methamphetamine going forward. Overall there was a gradual reduction in paranoia mood disturbance and other perceptual disturbances. The patient cooperated well on the go milieu. He was visited by his father and appeared to be motivated for discharge. The patient indicated that he would not use methamphetamine or drugs abuse and was given a follow-up with his primary care physician. The patient did not want to take psychotropic medicines such as Zoloft which was offered to him he did not feel that that was necessary for his problems and he felt that paying attention to his home his surroundings and his family would be most beneficial. The patient did not evidence suicidal thinking during the admission on the hospital stay. He was advised to avoid alcohol and drugs of abuse and he verbalizes understanding. - Time Spent with Patient Total time spent providing and/or coordinating discharge services: Less than 30 minutes Assessment and Plan - Patient/Caregiver Discharge Instructions Activity: resume usual activities as tolerated, return to work Diet: regular diet - Follow up Plan Follow up with: David Renteria [Outside] - 03/15/18 2:00 pm (The above appointment is with Linda for substance abuse counselling. Please bring completed [facility] intake packet that you were given at the hospital to your appointment . Bring a photo ID, proof of income and proof of insurance. Please call 24 hours prior to your appointment for cancellations. CONFIRM you appointment by MARCH 10 2018 or it will be CANCELLED*) Shai Oconnor MD [Non-Partnered Physician] - 03/03/18 12:45 pm (The above appointment is with Dr. Ucci for primary care and medication management. Please bring photo ID, proof of insurance and last year's tax statement if available. Also bring bottles of any medication you take on a regular basis to include over the counter, herbs, vitamins and prescription medication. Please call 24 hours in advance for cancellations. ) Functional capacity at discharge: independent ambulation Overall status at discharge: Stable Disposition: Home, Self-Care Quality - Multiple Antipsychotics Patient discharged on 2 or more antipsychotic medications: No Procedures - Procedures Procedures: Medication Management, Crisis Stabilization, Supportive Therapy, Group Therapy, Psychoeducational Therapy
== END 2018-02-26 14:10 | disposition home or self-care (01) | DRG 758 ==
LOC: EMEROO 21:03 → 1ANU 02-23 23:55
PROVIDERS: ADMIT Psychiatry & Neurology Forensic Psychiatry; ATTEND Psychiatry & Neurology Forensic Psychiatry